=== PATIENT | female | born 1960 | race Caucasian/White ===

== ENCOUNTER 2018-02-14 13:34 | Emergency (ER) | payer MEDICAID ==
[~2018-02-14] VITALS: Ht 165.1 cm; Wt 81.6 kg
[~2018-02-14 13:34] MED LIST: ACAM333T8; BUPR300T51; DICL75TA2; LEVO75TA6; TRAZ100T92
[2018-02-14 14:29] VITALS: BP 118/70
== END 2018-02-14 14:29 | disposition home or self-care (01) ==
LOC: EDUNIT# 13:34 → ER 13:36
DX: S71.112D Laceration without foreign body, left thigh, subsequent encounter (principal); X58.XXXD Exposure to other specified factors, subsequent encounter

== ENCOUNTER → 2019-07-14 | Outpatient (CLI) | payer MEDICAID ==
[~2019-07-14] MED LIST changes: +TRAZ-190; -TRAZ100T92
--- NOTE | 2019-07-14 11:35 | Diagnostic Imaging Report ---
INDICATION: Palpable lump, anterior left thigh. TECHNIQUE: Multiple real time chang scale sonographic images were obtained of the soft tissues of left thigh. CORRELATION STUDY: None FINDINGS: Ultrasound imaging of the soft tissues of the anterior left thigh have an unremarkable appearance. Julian distortion or definitive mass lesion is not demonstrated. IMPRESSION: 1.No definitive mass identified at ultrasound imaging soft tissues left thigh. If further imaging evaluation is desired, MRI preferably with contrast would be recommended. Dictated by: Dictated on workstation # [id number]
== END ==
LOC: RAD 10:36
PROVIDERS: ATTEND Internal Medicine
DX: M79.652 Pain in left thigh (principal); R22.42 Localized swelling, mass and lump, left lower limb
CPT/HCPCS: 76881

== ENCOUNTER → 2019-08-04 | Outpatient (CLI) | payer MEDICAID ==
[~2019-08-04] MED LIST changes: +GADOBUTROL 10 MMOL/10 ML (GADAVIST) VIAL IV ONE
[2019-08-04 09:02] LABS: BUN/CREATININE RATIO 17; CREATININE SERUM 0.83 MG/DL (0.60-1.30); GFR ESTIMATED > 60
--- NOTE | 2019-08-04 12:33 | Diagnostic Imaging Report ---
Exam: MRI left thigh without and with intravenous contrast. DATE: August 04, 2019. INDICATION: 58-year-old female, left anterior thigh pain and lump. COMPARISON: Ultrasound July 14, 2019. TECHNIQUE: Multiple pre and postcontrast MRI sequences at the level of the left thigh were obtained. FINDINGS: A marker was placed at the area of palpable concern which is anteriorly located at the level of the proximal to mid femoral diaphysis centered approximately 18.8 cm distal to the superior aspect of the left femoral head. There is no underlying soft tissue mass or fluid collection. There is nonspecific mild anterior subcutaneous edema near this region on axial T2 fat saturation sequence image 25 and adjacent sequential images. Additional soft tissue assessment is unremarkable. There is unremarkable intramuscular signal. There is no identified muscle hernia. The left common hamstring tendons, left iliopsoas tendon, left gluteus minimus and medius tendons, and additional visualized tendons are intact. There are synovial herniation pits at the left femoral head neck junction. There is no bone lesion. There is no acute fracture. There is no hip joint effusion. IMPRESSION: 1. No soft tissue mass or fluid collection at the area of focal patient concern of the anterior aspect of the left thigh at the level of the proximal to mid femoral diaphysis. 2. Mild nonspecific anterior subcutaneous edema near the area of focal patient concern. 3. Unremarkable intramuscular signal. 4. Intact tendons. 5. No identified bone lesion or notable bone marrow signal abnormality. Dictated by: Dictated on workstation # [id number]
== END ==
LOC: RAD 08:38
PROVIDERS: ATTEND Internal Medicine
DX: M79.652 Pain in left thigh (principal); R22.42 Localized swelling, mass and lump, left lower limb
CPT/HCPCS: 36415; 73720; 82565; 84520

== ENCOUNTER → 2020-06-28 | Outpatient (CLI) | payer MEDICARE, MEDICAID ==
[~2020-06-28] MED LIST changes: -BUPR300T51; +BUPR300T98; -GADOBUTROL 10 MMOL/10 ML (GADAVIST) VIAL IV ONE; -TRAZ-190; +TRAZ-227
--- NOTE | 2020-06-28 13:03 | Diagnostic Imaging Report ---
INDICATION: Routine screening. No prior mammograms are available for comparison. 2-D and 3-D bilateral screening mammography was performed with CAD. Scattered fibroglandular densities are identified bilaterally. No mass or malignant appearing microcalcifications are seen. Axillae are unremarkable. IMPRESSION: BI-RADS Category 1 No mammographic features suspicious for malignancy are identified. ACR BI-RADS Category 1: Negative. Result letter will be mailed to the patient. Note: At least 10% of breast cancer is not imaged by mammography. Dictated by: Dictated on workstation # [id number]
== END ==
LOC: RAD 08:50
PROVIDERS: ATTEND Internal Medicine
DX: Z12.31 Encounter for screening mammogram for malignant neoplasm of breast (principal)
CPT/HCPCS: 77063; 77067

== ENCOUNTER → 2020-09-19 | Outpatient (CLI) | payer MEDICARE, MEDICAID ==
--- NOTE | 2020-09-19 09:17 | Diagnostic Imaging Report ---
PROCEDURE: MRI lumbar spine. INDICATION: Chronic low back pain. TECHNIQUE: Multiplanar and multisequence magnetic resonance imagine was performed of the lumbar spine without contrast. CORRELATION STUDY: None. FINDINGS: There is normal alignment and curvature of the lumbar spine. The lumbar vertebral body heights are maintained and without geographic lesion. The conus appears unremarkable. L1-L2: Unremarkable. L2-L3: Disc space height maintained and signal intensity. Mild ligamentum hypertrophy without significant canal or foraminal narrowing. L3-L4: Preservation of disc space height and signal intensity. Mild ligamentum hypertrophy. No significant canal or foraminal narrowing. L4-L5: Mild loss of disc space height. Ligament and facet hypertrophy, slightly greater on the left, result in [id number] trefoil type spinal canal narrowing. Disc and osteophyte also result in bilateral foraminal narrowing with slight abutment of the exiting nerve root, particularly on the left. L5-S1: Loss of disc space height and signal intensity. Disc and osteophyte formation does result in bilateral foraminal narrowing, slightly greater on the left. There does appear to be very slight contour of the exiting nerve root. Mild spinal canal narrowing. The visualized portions of the abdominal aorta and kidneys are negative. No pathologically enlarged central retroperitoneal lymph nodes. IMPRESSION: Multilevel degenerative changes are present with various degrees of mild to moderate spinal canal and foraminal narrowing. Findings are most severe at the L4-L5 and L5-S1 levels. Dictated by: Dictated on workstation # [id number]
== END ==
LOC: RAD 07:43
PROVIDERS: ATTEND Internal Medicine
DX: M51.36 Other intervertebral disc degeneration, lumbar region (principal); M51.37 Other intervertebral disc degeneration, lumbosacral region; M48.061 Spinal stenosis, lumbar region without neurogenic claudication; M48.07 Spinal stenosis, lumbosacral region; M43.16 Spondylolisthesis, lumbar region
CPT/HCPCS: 72148

== ENCOUNTER 2020-09-30 16:07 | Emergency (ER) | payer MEDICARE, MEDICAID ==
[~2020-09-30] VITALS: Ht 157 cm; Wt 91.0 kg
--- NOTE | 2020-09-30 16:22 | ED Headache ---
General Chief Complaint: Head/Cervical Problems Stated Complaint: HEADACHE Source: patient Exam Limitations: no limitations History of Present Illness Date Seen by Provider: Sep 30, 2020 Time Seen by Provider: 16:20 Initial Comments to ER with reports of a bitemporal headache that she awakened with 2 days ago. She gets headaches routinely but never this bad. No fevers or chills. No confusion or nasal congestion or cough or fatigue. She reports light sensitivity but no blurred vision. She has had nausea but no vomiting. No neck pain or stiffness no head injury. She does report that she dyed her hair just prior to this the night before and got a chemical burn on her scalp. Timing/Duration: 1 week Severity/Quality: moderate Associated Symptoms: nausea/vomiting Allergies and Home Medications Allergies Coded Allergies: NKANo Known Allergies (Verified Allergy, Unknown, 08/15/08) Patient Home Medication List Home Medication List Reviewed: Yes Review of Systems Review of Systems Constitutional: see HPI Eyes: See HPI, Photophobia Ears, Nose, Mouth, Throat: no symptoms reported Respiratory: no symptoms reported Genitourinary: no symptoms reported Musculoskeletal: no symptoms reported Skin: no symptoms reported Psychiatric/Neurological: Headache Past Saufimi-Ruxyit-Jebluu Hx Patient Social History Alcohol Beverage of Choice: Beer, Rum Recent Foreign Travel: No Contact w/Someone Who Travel: No Recent Hopitalizations: No Past Medical History Surgeries: No Respiratory: No Cardiac: No Neurological: No Genitourinary: No Gastrointestinal: No Musculoskeletal: No Endocrine: No HEENT: No Cancer: No Psychosocial: Yes Anxiety, Depression Integumentary: No Physical Exam Vital Signs Vital Signs - First Documented 09/30/20 16:10 Temp 35.5 Pulse 84 Resp 18 B/P (MAP) 145/91 (109) Pulse Ox 95 O2 Delivery Room Air Capillary Refill : Height, Weight, BMI Height: 5'5.00" Weight: 180lbs. oz. 81.954500wk; 28.12 BMI Method:Estimated General Appearance: WD/WN, no apparent distress, other (alert and oriented very talkative no distress bit of erythema to the left side of the scalp in the parietal region without vesicles or other alarming characteristics.) HEENT: PERRL/EOMI, normal ENT inspection, TMs normal, pharynx normal Neck: non-tender, full range of motion; No tender lateral, No tender midline Respiratory: no respiratory distress, no accessory muscle use Extremities: normal range of motion, non-tender Psychiatric: alert, oriented x 3 Crainal Nerves: normal hearing, normal speech, PERRL Skin: normal color, warm/dry Procedures/Interventions Suture Size: 4-0 Progress/Results/Core Measures Results/Orders Lab Results Laboratory Tests Test 09/30/20 16:40 09/30/20 17:32 Range/Units White Blood Count 8.9 4.3-11.0 10^3/uL Red Blood Count 4.62 3.80-5.11 10^6/uL Hemoglobin 13.9 11.5-16.0 g/dL Hematocrit 44 35-52 % Mean Corpuscular Volume 94 80-99 fL Mean Corpuscular Hemoglobin 30 25-34 pg Mean Corpuscular Hemoglobin Concent 32 32-36 g/dL Red Cell Distribution Width 13.2 10.0-14.5 % Platelet Count 309 130-400 10^3/uL Mean Platelet Volume 10.7 9.0-12.2 fL Immature Granulocyte % (Auto) 0 % Neutrophils (%) (Auto) 48 42-75 % Lymphocytes (%) (Auto) 44 12-44 % Monocytes (%) (Auto) 5 0-12 % Eosinophils (%) (Auto) 2 0-10 % Basophils (%) (Auto) 1 0-10 % Neutrophils # (Auto) 4.2 1.8-7.8 10^3/uL Lymphocytes # (Auto) 3.9 1.0-4.0 10^3/uL Monocytes # (Auto) 0.5 0.0-1.0 10^3/uL Eosinophils # (Auto) 0.2 0.0-0.3 10^3/uL Basophils # (Auto) 0.0 0.0-0.1 10^3/uL Immature Granulocyte # (Auto) 0.0 0.0-0.1 10^3/uL Erythrocyte Sedimentation Rate 17 0-30 MM/HR Sodium Level 144 135-145 MMOL/L Potassium Level 3.7 3.6-5.0 MMOL/L Chloride Level 105 98-107 MMOL/L Carbon Dioxide Level 26 21-32 MMOL/L Anion Gap 13 5-14 MMOL/L Blood Urea Nitrogen 13 7-18 MG/DL Creatinine 1.07 0.60-1.30 MG/DL Estimat Glomerular Filtration Rate 52 BUN/Creatinine Ratio 12 Glucose Level 115 H 70-105 MG/DL Calcium Level 8.7 8.5-10.1 MG/DL Coronavirus 2019 ([facility]) Negative Negative My Orders Orders - ARACELIS CLEMENTS APRN Cbc With Automated Diff (09/30/20 16:34) Erythrocyte Sedimentation Rate (09/30/20 16:34) Ed Iv/Invasive Line Start (09/30/20 16:34) Ct Head Wo (09/30/20 16:34) Basic Metabolic Panel (09/30/20 16:34) Ketorolac Injection (Toradol Injection) (09/30/20 16:45) Prochlorperazine Injection (Compazine In (09/30/20 16:45) Diphenhydramine Injection (Benadryl Inje (09/30/20 16:45) Ns Iv 1000 Ml (Sodium Chloride 0.9%) (09/30/20 16:45) Fentanyl Injection (Sublimaze Injection (09/30/20 17:45) Covid 19 Inhouse Test (09/30/20 17:36) Medications Given in ED Current Medications Medications Dose Ordered Sig/Jerrica Route Start Time Stop Time Status Last Admin Dose Admin Diphenhydramine HCl 25 mg ONCE ONCE IVP 09/30/20 16:45 09/30/20 16:46 DC 09/30/20 16:58 25 MG Fentanyl Citrate 75 mcg ONCE ONCE IVP 09/30/20 17:45 09/30/20 17:46 DC 09/30/20 17:46 75 MCG Ketorolac Tromethamine 15 mg ONCE ONCE IVP 09/30/20 16:45 09/30/20 16:46 DC 09/30/20 17:02 15 MG Prochlorperazine Edisylate 5 mg ONCE ONCE IV 09/30/20 16:45 09/30/20 16:46 DC 09/30/20 16:53 5 MG Vital Signs/I&O 09/30/20 16:10 Temp 35.5 Pulse 84 Resp 18 B/P (MAP) 145/91 (109) Pulse Ox 95 O2 Delivery Room Air Departure Communication (Admissions) 3560-started out with a bilateral greater occipital nerve block with 2 mL of 1% lidocaine with epinephrine on each side. No improvement. We then started an IV checked labs did a CT and gave Toradol Compazine and Benadryl plus IV fluids. At this time I reassessed her and she has no improvement. I'll swab her for covid and give 75 g of fentanyl IV. Impression Primary Impression: Headache Disposition: HOME, SELF-CARE Condition: Improved Departure-Patient Inst. Decision time for Depature: 17:29 Referrals: JAN RAMÍREZ MD (PCP/Family) Primary Care Physician Patient Instructions: Headache, Adult (DC) Add. Discharge Instructions: 1. Return to ER for any concerns 2. Follow-up with your doctor next week 3. All discharge instructions reviewed with patient and/or family. Voiced understanding. ARACELIS CLEMENTS ENDOSCOPY RN Sep 30, 2020 16:22
[2020-09-30] MEDS ORDERED: PROCHLORPERAZINE 10 MG/2ML INJ (COMPAZINE) IV ONE (16:45)
[2020-09-30] MEDS ORDERED: NS IV 1000 ML 1,000 ML IV SCH (16:45)
[2020-09-30] MEDS ORDERED: diphenhydrAMINE 50 MG/ML INJ (BENADRYL) IVP ONE (16:45)
[2020-09-30] MEDS ORDERED: KETOROLAC 30 MG/ML VIAL IVP ONE (16:45)
[2020-09-30 16:48] LABS: BASOPHILS % (AUTO) 1 % (0-10); EOSINOPHILS # (AUTO) 0.2 10^3/uL (0.0-0.3); EOSINOPHILS % (AUTO) 2 % (0-10); HEMATOCRIT 44 % (35-52); HEMOGLOBIN 13.9 g/dL (11.5-16.0); LYMPHOCYTES # (AUTO) 3.9 10^3/uL (1.0-4.0); LYMPHOCYTES % (AUTO) 44 % (12-44); MEAN CORPUSCULAR HEMOGLOBIN 30 pg (25-34); MEAN CORPUSCULAR HGB CONC 32 g/dL (32-36); MEAN CORPUSCULAR VOLUME 94 fL (80-99); MEAN PLATELET VOLUME 10.7 fL (9.0-12.2); MONOCYTES # (AUTO) 0.5 10^3/uL (0.0-1.0); MONOCYTES % (AUTO) 5 % (0-12); NEUTROPHILS # (AUTO) 4.2 10^3/uL (1.8-7.8); NEUTROPHILS % (AUTO) 48 % (42-75); PLATELET COUNT 309 10^3/uL (130-400); WHITE BLOOD COUNT 8.9 10^3/uL (4.3-11.0)
[2020-09-30 17:02] LABS: POTASSIUM 3.7 MMOL/L (3.6-5.0)
[2020-09-30 17:04] LABS: CALCIUM 8.7 MG/DL (8.5-10.1)
[2020-09-30 17:08] LABS: CREATININE SERUM 1.07 MG/DL (0.60-1.30)
[2020-09-30 17:16] LABS: ERYTHROCYTE SEDIMENTATION RATE 17 MM/HR (0-30)
--- NOTE | 2020-09-30 17:25 | Diagnostic Imaging Report ---
PROCEDURE: CT head without contrast. TECHNIQUE: Multiple contiguous axial images were obtained through the brain without the use of intravenous contrast. Auto Exposure Controls were utilized during the CT exam to meet ALARA standards for radiation dose reduction. INDICATION: Headache. COMPARISON: No prior examinations are available for comparison. FINDINGS: The ventricles and sulci are within normal limits. There is no hydrocephalus or cerebral edema. There is no midline shift or mass effect. There is no intracranial mass, hemorrhage, or extra-axial fluid collection. The visualized paranasal sinuses and mastoid air cells are clear. There are no regional areas of decreased attenuation appreciated to suggest an acute CVA. IMPRESSION: No acute intracranial abnormality. Dictated by: Dictated on workstation # [id number]
[2020-09-30] MEDS ORDERED: fentaNYL INJECTION 100 MCG/2 ML AMP IVP ONE (17:45)
[2020-09-30 18:17] VITALS: BP 138/85
== END 2020-09-30 18:17 | disposition home or self-care (01) ==
LOC: EDUNIT# 16:07 → ER 16:09
DX: R51.9 Headache, unspecified (principal); Z20.828 Contact with and (suspected) exposure to other viral communicable diseases
CPT/HCPCS: 70450; 80048; 85025; 85652; 99284; U0002; 36415; 87635; 96374; 96375; 96376

== ENCOUNTER 2021-03-29 17:52 | Emergency (ER) | payer MEDICARE, MEDICAID ==
[~2021-03-29] VITALS: Ht 157.5 cm; Wt 73.9 kg
--- NOTE | 2021-03-29 18:04 | ED General ---
General Chief Complaint: Respiratory Problems Stated Complaint: SOB Source of Information: Patient (CHANGES STORY MULTIPLE TIMES) History of Present Illness Date Seen by Provider: Mar 29, 2021 Time Seen by Provider: 17:54 Initial Comments PT ARRIVES VIA EMS FROM HOME PT STATES SHE WALKS EVERY DAY, AND TODAY SHE HAS WALKED A TOTAL OF 5 MILES--IN INCREMENTS THROUGHOUT THE DAY TEMP 95 DEGREES/HEAT INDEX > 100 STATES AFTER WALKING THE LAST 40 MINUTES, SHE FEELS LIKE SHE "CAN'T CATCH MY BREATH AND STILL FEEL OVERHEATED" --STATES SHE ALWAYS FEELS LIKE SHE CAN'T GET IN A FULL DEEP BREATH--ONGOING FOR A VERY LONG TIME STILL SWEATING NO CHEST PAIN NO PALPITATIONS NO NAUSEA/VOMITING/DIARRHEA OR ABDOMINAL PAIN NO DIZZINESS, BUT THEN LATER STATES SHE WAS "HAVING TO HOLD ON TO THE [place]" AFTER SHE CAME IN FROM HER WALK NO HEADACHE NO SYNCOPE NO PARESTHESIAS OR MOTOR DEFICITS STATES SHE IS TRYING TO LOSE WEIGHT, HAS NOT EATEN ANYTHING SINCE YESTERDAY--INTENTIONALLY HAS NOT EATEN, BECAUSE SHE IS TRYING TO LOSE WEIGHT--, AND DRANK 40 OZ OF WATER X 3 TODAY LAST VOID WAS AROUND NOON TODAY. HOWEVER, STATES SHE HAS A FULL BLADDER NOW AND NEEDS TO URINATE ON ARRIVAL ALSO WANTING SOMETHING TO EAT ON ARRIVAL "BECAUSE I HAVEN'T EATEN SINCE YESTERDAY" PT DRINKS "OCCASIONALLY" AND HAD RUM AND COKE THIS MORNING AT 10 AM. THEN STATES SHE ALSO WENT TO WORK TODAY AT 10 AM AT THE "[employer]" AND SINCE SHE IS HERE, SHE WOULD LIKE HER LEFT ANKLE CHECKED ALSO--THIS IS HER MAIN FOCUS ON ARRIVAL STATES SHE FELL A WEEK AGO AND HER LEFT ANKLE IS SORE, BUT DID NOT SEEK CARE AT ANY TIME, AND HAS CONTINUED TO WALK SEVERAL MILES EVERY DAY SINCE HAS SCABBED ABRASIONS TO BOTH KNEES--NO COMPLAINT OF KNEE PAIN PT IS NOT UP TO DATE ON TETANUS VACCINE CHANGES HER STORY A MULTITUDE OF TIMES REGARDING WORK, WHEN SHE FELL, WHEN SHE LAST HAD ANY ALCOHOL AND HOW MUCH--STATING ANY/ALL OF THESE OCCURRED ANYWHERE FROM LAST WEEK UNTIL THIS MORNING PCP: ISAIAH, DR. RAMÍREZ Allergies and Home Medications Allergies Coded Allergies: NKANo Known Allergies (Verified Allergy, Unknown, 08/15/08) Patient Home Medication List Home Medication List Reviewed: Yes Review of Systems Review of Systems Constitutional: see HPI EENTM: no symptoms reported Respiratory: see HPI; No cough; dyspnea on exertion, short of breath Cardiovascular: No chest pain, No edema, No palpitations, No syncope Gastrointestinal: no symptoms reported; No abdominal pain, No diarrhea, No nausea, No vomiting Genitourinary: see HPI, decreased output Musculoskeletal: other (FELL LAST WEEK, ABRASIONS TO BOTH KNEES, LEFT ANKLE PAIN--HAS NOT SOUGHT CARE) Skin: no symptoms reported Psychiatric/Neurological: No Symptoms Reported; Denies Headache, Denies Numbness, Denies Paresthesia, Denies Seizure, Denies Tingling, Denies Weakness Hematologic/Lymphatic: No Symptoms Reported Immunological/Allergic: no symptoms reported Past Lhawcrj-Rnpsas-Ypcwli Hx Past Med/Social Hx: Reviewed and Corrections made Patient Social History Alcohol Use: Occasionally Uses Alcohol Beverage of Choice: Beer, Rum Drug of Choice: HX OF COCAINE USE YEARS AGO-SNORTED/SMOKED IT Smoking Status: Former Smoker (1 PPD, QUIT 2019) Type Used: Cigarettes Former Smoker, Quit: Sep 13, 2020 2nd Hand Smoke Exposure: No Recent Hopitalizations: No Substance type: Other (COCAINE IN PAST--SNORTED/SMOKED IT) Immunizations Up To Date Date of Influenza Vaccine: Jul 14, 2019 Past Medical History Surgeries: Yes (RIGHT CARPAL TUNNEL) Orthopedic, Tubal Ligation Respiratory: No Cardiac: Yes High Cholesterol Neurological: No : No [employer] History: Menopausal Genitourinary: No Gastrointestinal: No Musculoskeletal: Yes (OPIATE DEPENDENT) Degenerate Disk Disease, Chronic Back Pain Endocrine: No HEENT: No Cancer: No Psychosocial: Yes Sleep Difficulties, Anxiety, Depression Integumentary: No Blood Disorders: No Physical Exam Vital Signs Vital Signs - First Documented 03/29/21 03/29/21 17:56 19:00 Temp 36.5 Pulse 80 Resp 18 B/P (MAP) 120/78 (92) Pulse Ox 99 O2 Delivery Room Air Capillary Refill : Height, Weight, BMI Height: 5'5.00" Weight: 180lbs. oz. 81.528911te; 36.00 BMI Method:Estimated General Appearance: No Apparent Distress, WD/WN, Obese, Other (SMILING, LAUGHING, TALKS NON-STOP AT LENGTH, NO DYSPNEA NOTED. DOES NOT APPEAR TO BE IN ANY DISCOMFORT OR DISTRESS. PT WITH EAR BUDS IN PLACE AnD CELL PHONE STRAPPED TO LEFT WRIST, AND CONTINUES TO LISTEN AND WATCH VIDEOS/ETC ON HER PHONE THROUGHTOUT HISTORY AND EXAM. SMILING AND LAUGHING AT INTERVALS THROUHGOUT EXAM AND ER STAY. ) HEENT: PERRL/EOMI, Other (POOR DENTITION) Neck: Full Range of Motion, Normal Inspection, Non Tender, Supple; No Carotid Bruit, No JVD Respiratory: Chest Non Tender, Normal Breath Sounds, No Accessory Muscle Use, No Respiratory Distress Cardiovascular: Regular Rate, Rhythm, No Edema, No JVD, No Murmur, Normal Peripheral Pulses Gastrointestinal: Normal Bowel Sounds, No Organomegaly, Non Tender, Soft Back: No CVA Tenderness Extremity: Normal Capillary Refill, Normal Range of Motion, No Calf Tenderness, No Pedal Edema, Other (MILD TENDERNESS TO LATERAL MALLEOLUS OF LEFT ANKLE. VERY FAINT YELLOW BRUISING, AND VERY SLIGHT SWELLING TO LATERAL MALLEOLUS) Neurologic/Psychiatric: Alert, Oriented x3, No Motor/Sensory Deficits, Normal Mood/Affect, port drier II-XII Norm as Tested; No Abnormal Cerebellar Tests Skin: Normal Color, Warm/Dry; No Cool, No Cyanosis, No Diaphoresis, No Erythema; Tattoos/Piercings (EXTENSIVE TATTOOS), Other (SCABBED ABRASIONS TO BOTH KNEES.. COLOR IS NORMAL, SKIN IS COOL AND DRY. ) Procedures/Interventions Suture Size: 4-0 Progress/Results/Core Measures Suspected Sepsis SIRS Temperature: Pulse: Respiratory Rate: Laboratory Tests 03/29/21 17:57: White Blood Count 7.6 Blood Pressure / Mean: Laboratory Tests 03/29/21 17:57: Creatinine 0.84, Platelet Count 280, Total Bilirubin 0.3 Results/Orders Lab Results Laboratory Tests Test 03/29/21 17:57 03/29/21 18:13 Range/Units White Blood Count 7.6 4.3-11.0 10^3/uL Red Blood Count 4.38 3.80-5.11 10^6/uL Hemoglobin 13.3 11.5-16.0 g/dL Hematocrit 40 35-52 % Mean Corpuscular Volume 91 80-99 fL Mean Corpuscular Hemoglobin 30 25-34 pg Mean Corpuscular Hemoglobin Concent 34 32-36 g/dL Red Cell Distribution Width 13.2 10.0-14.5 % Platelet Count 280 130-400 10^3/uL Mean Platelet Volume 11.3 9.0-12.2 fL Immature Granulocyte % (Auto) 0 % Neutrophils (%) (Auto) 41 L 42-75 % Lymphocytes (%) (Auto) 48 H 12-44 % Monocytes (%) (Auto) 8 0-12 % Eosinophils (%) (Auto) 2 0-10 % Basophils (%) (Auto) 1 0-10 % Neutrophils # (Auto) 3.2 1.8-7.8 10^3/uL Lymphocytes # (Auto) 3.7 1.0-4.0 10^3/uL Monocytes # (Auto) 0.6 0.0-1.0 10^3/uL Eosinophils # (Auto) 0.2 0.0-0.3 10^3/uL Basophils # (Auto) 0.0 0.0-0.1 10^3/uL Immature Granulocyte # (Auto) 0.0 0.0-0.1 10^3/uL Sodium Level 141 135-145 MMOL/L Potassium Level 3.5 L 3.6-5.0 MMOL/L Chloride Level 105 98-107 MMOL/L Carbon Dioxide Level 19 L 21-32 MMOL/L Anion Gap 17 H 5-14 MMOL/L Blood Urea Nitrogen 7 7-18 MG/DL Creatinine 0.84 0.60-1.30 MG/DL Estimat Glomerular Filtration Rate > 60 BUN/Creatinine Ratio 8 Glucose Level 80 70-105 MG/DL Calcium Level 9.1 8.5-10.1 MG/DL Corrected Calcium 9.1 8.5-10.1 MG/DL Magnesium Level 2.1 1.6-2.4 MG/DL Total Bilirubin 0.3 0.1-1.0 MG/DL Aspartate Amino Transf (AST/SGOT) 20 5-34 U/L Alanine Aminotransferase (ALT/SGPT) 17 0-55 U/L Alkaline Phosphatase 83 40-136 U/L Total Creatine Kinase 96 29-168 U/L Creatine Kinase MB 1.2 <6.6 NG/ML Myoglobin 46.5 10.0-92.0 NG/ML Troponin I < 0.028 <0.028 NG/ML B-Type Natriuretic Peptide < 10.0 <100.0 PG/ML Total Protein 7.1 6.4-8.2 GM/DL Albumin 4.0 3.2-4.5 GM/DL TSH [place] Testing 1.09 0.35-4.94 UIU/ML Serum Alcohol 115 H <10 MG/DL Urine Color YELLOW Urine Clarity CLEAR Urine pH 5.5 5-9 Urine Specific [place] <=1.005 1.016-1.022 Urine Protein NEGATIVE NEGATIVE Urine Glucose (UA) NEGATIVE NEGATIVE Urine Ketones NEGATIVE NEGATIVE Urine Nitrite NEGATIVE NEGATIVE Urine Bilirubin NEGATIVE NEGATIVE Urine Urobilinogen 0.2 < = 1.0 MG/DL Urine Leukocyte Esterase NEGATIVE NEGATIVE Urine RBC (Auto) NEGATIVE NEGATIVE Urine RBC NONE /HPF Urine WBC NONE /HPF Urine Squamous Epithelial Cells RARE /HPF Urine Crystals NONE /LPF Urine Bacteria NEGATIVE /HPF Urine Casts NONE /LPF Urine Mucus NEGATIVE /LPF Urine Culture Indicated NO Urine Opiates Screen NEGATIVE NEGATIVE Urine Oxycodone Screen NEGATIVE NEGATIVE Urine Methadone Screen NEGATIVE NEGATIVE Urine Propoxyphene Screen NEGATIVE NEGATIVE Urine Barbiturates Screen NEGATIVE NEGATIVE Ur Tricyclic Antidepressants Screen NEGATIVE NEGATIVE Urine Phencyclidine Screen NEGATIVE NEGATIVE Urine Amphetamines Screen NEGATIVE NEGATIVE Urine Methamphetamines Screen NEGATIVE NEGATIVE Urine Benzodiazepines Screen NEGATIVE NEGATIVE Urine Cocaine Screen NEGATIVE NEGATIVE Urine Cannabinoids Screen NEGATIVE NEGATIVE My Orders Orders - MELINDA DSOUZA DO Ed Iv/Invasive Line Start (03/29/21 18:04) Ekg Tracing (03/29/21 18:04) Monitor-Rhythm Ecg Trace Only (03/29/21 18:04) Alcohol (03/29/21 18:04) BNP (03/29/21 18:04) Cbc With Automated Diff (03/29/21 18:04) Comprehensive Metabolic Panel (03/29/21 18:04) Creatine Kinase (03/29/21 18:04) Creatine Kinase Mb (03/29/21 18:04) Drug Screen Stat (Urine) (03/29/21 18:04) Magnesium (03/29/21 18:04) Thyroid Analyzer (03/29/21 18:04) Ua Culture If Indicated (03/29/21 18:04) Myoglobin Serum (03/29/21 18:04) Troponin I (03/29/21 18:04) Chest 1 View, Ap/Pa Only (03/29/21 18:04) Ed Iv/Invasive Line Start (03/29/21 18:04) Lactated Ringers (Lr 1000 Ml Iv Solution (03/29/21 18:15) Ankle, Left, 3 Views (03/29/21 18:16) Dipht,Pertuss(Acell),Tet Adult (Boostrix (03/29/21 18:30) Medications Given in ED Vital Signs/I&O 03/29/21 03/29/21 17:56 19:00 Temp 36.5 36.6 Pulse 80 87 Resp 18 18 B/P (MAP) 120/78 (92) 126/81 (92) Pulse Ox 99 O2 Delivery Room Air Room Air 03/30/21 00:00 Intake Total 1000 ml Balance 1000 ml Capillary Refill : Progress Note : Progress Note NO SYMPTOMS OR COMPLAINTS DURING ER STAY VERY TALKATIVE AND LAUGHING THROUGHOUT ER STAY PT WALKS OUT OF ER ON HER OWN WITHOUT DIFFICULTY SPEECH CLEAR, GAIT STEADY ECG Initial ECG Impression Date: Mar 29, 2021 Initial ECG Impression Time: 18:03 Initial ECG Rate: 77 Initial ECG Rhythm: Normal Sinus Diagnostic Imaging Comments XRAYS PER RADIOLOGIST REPORTS AT 1850 CXR--NO ACUTE PROCESS LEFT ANKLE XRAYS--NO ACUTE PROCESS Departure Impression Primary Impression: Alcohol intoxication Additional Impression: Left ankle sprain Disposition: 01 HOME, SELF-CARE Condition: Stable Departure-Patient Inst. Decision time for Depature: 18:50 Referrals: JAN RAMÍREZ MD (PCP/Family) Primary Care Physician Patient Instructions: Alcohol Abuse and Alcoholism (DC), Effects of Alcohol on Your Health Add. Discharge Instructions: HOME, REST EAT AT LEAST 3 SMALL MEALS A DAY DRINK EQUAL AMOUNTS OF WATER AND GATORADE WHILE YOU ARE IN THE HEAT--DRINK ENOUGH SO YOU ARE URINATING EVERY 2-3 HOURS NO ALCOHOL FOLLOW UP WITH YOUR DR NEEDED All discharge instructions reviewed with patient and/or family. Voiced understanding. MELINDA DSOUZA DO Mar 29, 2021 18:04
[2021-03-29 18:13] LABS: BASOPHILS % (AUTO) 1 % (0-10); EOSINOPHILS # (AUTO) 0.2 10^3/uL (0.0-0.3); EOSINOPHILS % (AUTO) 2 % (0-10); HEMATOCRIT 40 % (35-52); HEMOGLOBIN 13.3 g/dL (11.5-16.0); LYMPHOCYTES # (AUTO) 3.7 10^3/uL (1.0-4.0); LYMPHOCYTES % (AUTO) 48 % (12-44); MEAN CORPUSCULAR HEMOGLOBIN 30 pg (25-34); MEAN CORPUSCULAR HGB CONC 34 g/dL (32-36); MEAN CORPUSCULAR VOLUME 91 fL (80-99); MEAN PLATELET VOLUME 11.3 fL (9.0-12.2); MONOCYTES # (AUTO) 0.6 10^3/uL (0.0-1.0); MONOCYTES % (AUTO) 8 % (0-12); NEUTROPHILS # (AUTO) 3.2 10^3/uL (1.8-7.8); NEUTROPHILS % (AUTO) 41 % (42-75); PLATELET COUNT 280 10^3/uL (130-400); WHITE BLOOD COUNT 7.6 10^3/uL (4.3-11.0)
[2021-03-29] MEDS ORDERED: LACTATED RINGERS 1,000 ML IV ONE (18:15)
[2021-03-29 18:17] LABS: CHLORIDE 105 MMOL/L (98-107); POTASSIUM 3.5 MMOL/L (3.6-5.0); SODIUM 141 MMOL/L (135-145)
[2021-03-29 18:18] LABS: CALCIUM 9.1 MG/DL (8.5-10.1)
[2021-03-29 18:19] LABS: GLUCOSE 80 MG/DL (70-105); TOTAL PROTEIN 7.1 GM/DL (6.4-8.2)
[2021-03-29 18:20] LABS: CARBON DIOXIDE 19 MMOL/L (21-32)
[2021-03-29 18:21] LABS: BILIRUBIN,TOTAL 0.3 MG/DL (0.1-1.0)
[2021-03-29 18:21] LABS: BILIRUBIN,URINE NEGATIVE (NEGATIVE); CLARITY,URINE CLEAR; COLOR,URINE YELLOW; GLUCOSE, URINE (UA) NEGATIVE (NEGATIVE); KETONES,URINE NEGATIVE (NEGATIVE); LEUKOCYTE ESTERASE ,URINE NEGATIVE (NEGATIVE); NITRITE,URINE NEGATIVE (NEGATIVE); PH,URINE 5.5 (5-9); PROTEIN,URINE NEGATIVE (NEGATIVE)
[2021-03-29 18:23] LABS: ALKALINE PHOSPHATASE 83 U/L (40-136); CREATININE SERUM 0.84 MG/DL (0.60-1.30); GFR ESTIMATED > 60
[2021-03-29 18:24] LABS: BUN/CREATININE RATIO 8
[2021-03-29 18:26] LABS: ALANINE AMINOTRANSFERASE 17 U/L (0-55); MAGNESIUM 2.1 MG/DL (1.6-2.4)
[2021-03-29 18:26] LABS: BACTERIA,URINE NEGATIVE /HPF; SQUAMOUS EPITHELIAL CELL,UR RARE /HPF
[2021-03-29 18:27] LABS: CREATINE KINASE 96 U/L (29-168)
[2021-03-29] MEDS ORDERED: TETANUS,DIPTH,PERTUSS P/F (BOOSTRIX) 0.5 ML VIAL IM ONE (18:30)
[2021-03-29 18:33] LABS: CREATINE KINASE MB 1.2 NG/ML (<6.6)
[2021-03-29 18:38] LABS: AMPHETAMINE SCREEN, URINE NEGATIVE (NEGATIVE); BARBITURATE SCREEN URINE NEGATIVE (NEGATIVE); BENZODIAZEPINES SCREEN URINE NEGATIVE (NEGATIVE); CANNABINOID SCREEN, URINE NEGATIVE (NEGATIVE); COCAINE SCREEN URINE NEGATIVE (NEGATIVE); METHADONE STAT NEGATIVE (NEGATIVE); METHAMPHETAMINE SCREEN URINE S NEGATIVE (NEGATIVE); OPIATE SCREEN URINE NEGATIVE (NEGATIVE); OXYCODONE STAT NEGATIVE (NEGATIVE); PROPOXYPHENE STAT NEGATIVE (NEGATIVE); TRICYCLIC ANTIDEPRESSANTS SCRE NEGATIVE (NEGATIVE)
[2021-03-29 18:46] LABS: TSH (THYROID ANALYZER) 1.09 UIU/ML (0.35-4.94)
--- NOTE | 2021-03-29 18:48 | Diagnostic Imaging Report ---
INDICATION: Dyspnea. TECHNIQUE: Frontal chest obtained at 06:36 p.m. FINDINGS: Heart and mediastinal silhouette are normal in appearance. The lungs are clear. There is no pneumothorax or pleural fluid. IMPRESSION: Negative chest. Dictated by: Dictated on workstation # [id number]
--- NOTE | 2021-03-29 18:49 | Diagnostic Imaging Report ---
INDICATION: Injury of left ankle. EXAMINATION: AP, oblique and lateral views of the left ankle were obtained. FINDINGS: No fracture or acute bony abnormality is seen. There is mild calcaneal spurring. IMPRESSION: No acute abnormality of left ankle. Dictated by: Dictated on workstation # [id number]
[2021-03-29 19:00] VITALS: BP 126/81
== END 2021-03-29 19:02 | disposition home or self-care (01) ==
LOC: EDUNIT# 17:52 → ER 17:54
DX: S93.402A Sprain of unspecified ligament of left ankle, initial encounter (principal); S80.211A Abrasion, right knee, initial encounter; S80.212A Abrasion, left knee, initial encounter; F10.929 Alcohol use, unspecified with intoxication, unspecified; E66.9 Obesity, unspecified; Y90.5 Blood alcohol level of 100-119 mg/100 ml; Z68.36 Body mass index [BMI] 36.0-36.9, adult; Z87.891 Personal history of nicotine dependence; Z23 Encounter for immunization; W19.XXXA Unspecified fall, initial encounter
CPT/HCPCS: 71045; 73610; 80053; 80306; 81000; 82550; 82553; 83735; 83874; 83880; 84443; 84484; 85025; 93041; G0480; 36415; 80320; 90715; 93005

== ENCOUNTER 2021-05-21 17:50 | Emergency (ER) | payer MEDICARE, MEDICAID ==
[~2021-05-21] VITALS: Ht 154 cm; Wt 72.7 kg
[2021-05-21] MEDS ORDERED: NS IV 500 ML 500 ML IV SCH (18:00)
[2021-05-21] MEDS ORDERED: KETAMINE SYRINGE 50 MG/5 ML SYRINGE IV ONE (18:00)
[2021-05-21] MEDS ORDERED: KETOROLAC 30 MG/ML VIAL IVP ONE (18:00)
--- NOTE | 2021-05-21 18:05 | ED Back Pain ---
General Chief Complaint: Back Problems Stated Complaint: BACK PAIN Source of Information: Patient Exam Limitations: No Limitations History of Present Illness Date Seen by Provider: May 21, 2021 Time Seen by Provider: 18:01 Initial Comments To ER with reports of severe right flank pain that radiates down the right leg. This is been ongoing for quite some time and she is on oxycodone for it. Her last dose of this was this morning at about 7 AM, she hasn't taken anymore because she didn't feel like it helped. She has had 3 rick colada's to drink today. She called EMS to transport her to the emergency room for further evaluation. No fevers or chills. No loss of bowel or bladder control. No history of IV drug use. No loss of sensation of genitals. No history of cancer. She states this pain got worse than usual on 05/19/2021 after her physical therapy appointment. Location: Lumbar Spine, Paraspinous Muscles Timing/Duration: 1-2 Days Severity: Moderate Associated Symptoms: denies symptoms Allergies and Home Medications Allergies Coded Allergies: NKANo Known Allergies (Verified Allergy, Unknown, 08/15/08) Patient Home Medication List Home Medication List Reviewed: Yes Review of Systems Constitutional: see HPI EENTM: see HPI Respiratory: no symptoms reported Cardiovascular: no symptoms reported Genitourinary: no symptoms reported Musculoskeletal: see HPI, back pain Skin: no symptoms reported Psychiatric/Neurological: No Symptoms Reported Past Ljlghbj-Iigkpj-Zsztph Hx Past Medical History Surgeries: Yes (RIGHT CARPAL TUNNEL) Orthopedic, Tubal Ligation Respiratory: No Cardiac: Yes High Cholesterol Neurological: No [employer] History: Menopausal Genitourinary: No Gastrointestinal: No Musculoskeletal: Yes (OPIATE DEPENDENT) Degenerate Disk Disease, Chronic Back Pain Endocrine: No HEENT: No Cancer: No Psychosocial: Yes Sleep Difficulties, Anxiety, Depression Integumentary: No Blood Disorders: No Physical Exam Vital Signs Vital Signs - First Documented 05/21/21 17:53 Temp 36.0 Pulse 78 Resp 18 B/P (MAP) 106/67 (80) Pulse Ox 98 O2 Delivery Room Air Capillary Refill : Height, Weight, BMI Height: 5'5.00" Weight: 180lbs. oz. [id number]; 29.00 BMI Method:Estimated General Appearance: No Apparent Distress, WD/WN Neck: Full Range of Motion, Normal Inspection Respiratory: No Accessory Muscle Use, No Respiratory Distress Extremity: Normal Capillary Refill, Normal Inspection Neurologic/Psychiatric: Alert, Oriented x3 Skin: Normal Color, Warm/Dry Procedures/Interventions Suture Size: 4-0 Progress/Results/Core Measures Results/Orders Lab Results Laboratory Tests Test 05/21/21 18:03 Range/Units White Blood Count 7.4 4.3-11.0 10^3/uL Red Blood Count 4.40 3.80-5.11 10^6/uL Hemoglobin 13.3 11.5-16.0 g/dL Hematocrit 42 35-52 % Mean Corpuscular Volume 94 80-99 fL Mean Corpuscular Hemoglobin 30 25-34 pg Mean Corpuscular Hemoglobin Concent 32 32-36 g/dL Red Cell Distribution Width 13.4 10.0-14.5 % Platelet Count 276 130-400 10^3/uL Mean Platelet Volume 11.7 9.0-12.2 fL Immature Granulocyte % (Auto) 0 % Neutrophils (%) (Auto) 43 42-75 % Lymphocytes (%) (Auto) 51 H 12-44 % Monocytes (%) (Auto) 3 0-12 % Eosinophils (%) (Auto) 2 0-10 % Basophils (%) (Auto) 1 0-10 % Neutrophils # (Auto) 3.1 1.8-7.8 10^3/uL Lymphocytes # (Auto) 3.8 1.0-4.0 10^3/uL Monocytes # (Auto) 0.3 0.0-1.0 10^3/uL Eosinophils # (Auto) 0.1 0.0-0.3 10^3/uL Basophils # (Auto) 0.1 0.0-0.1 10^3/uL Immature Granulocyte # (Auto) 0.0 0.0-0.1 10^3/uL Sodium Level 147 H 135-145 MMOL/L Potassium Level 3.6 3.6-5.0 MMOL/L Chloride Level 110 H 98-107 MMOL/L Carbon Dioxide Level 23 21-32 MMOL/L Anion Gap 14 5-14 MMOL/L Blood Urea Nitrogen 8 7-18 MG/DL Creatinine 0.95 0.60-1.30 MG/DL Estimat Glomerular Filtration Rate 60 BUN/Creatinine Ratio 8 Glucose Level 102 70-105 MG/DL Calcium Level 8.9 8.5-10.1 MG/DL Serum Alcohol 228 H <10 MG/DL My Orders Orders - ARACELIS CLEMENTS [employer] Cbc With Automated Diff (05/21/21 17:57) Alcohol (05/21/21 17:57) Basic Metabolic Panel (05/21/21 17:57) Ed Iv/Invasive Line Start (05/21/21 17:57) Ct Abd/Pelvis Wo(Kidney Stone) (05/21/21 17:57) Ns Iv 500 Ml (Sodium Chloride 0.9%) (05/21/21 18:00) Ketorolac Injection (Toradol Injection) (05/21/21 18:00) Ketamine Syringe (Ketamine Syringe) (05/21/21 18:00) Ua Culture If Indicated (05/21/21 18:00) Medications Given in ED Current Medications Medications Dose Ordered Sig/Jerrica Route Start Time Stop Time Status Last Admin Dose Admin Ketamine HCl 25 mg ONCE ONCE IV 05/21/21 18:00 05/21/21 18:01 DC 05/21/21 18:11 25 MG Ketorolac Tromethamine 15 mg ONCE ONCE IVP 05/21/21 18:00 05/21/21 18:01 DC 05/21/21 18:11 15 MG Vital Signs/I&O 05/21/21 17:53 Temp 36.0 Pulse 78 Resp 18 B/P (MAP) 106/67 (80) Pulse Ox 98 O2 Delivery Room Air Departure Communication (Admissions) [id number] "you are going to admit me, I am not going home. You will give me what ever medication I need, but I am not going home under any circumstance". Impression Primary Impression: Alcohol intoxication Additional Impression: Back pain Disposition: 01 HOME, SELF-CARE Condition: Stable Departure-Patient Inst. Decision time for Depature: 18:28 Referrals: JAN RAMÍREZ MD (PCP/Family) Primary Care Physician Patient Instructions: MANAGING YOUR CHRONIC PAIN Add. Discharge Instructions: All discharge instructions reviewed with patient and/or family. Voiced understanding. Images Torso/Trunk 1 - ARACELIS CLEMENTS APRN May 21, 2021 18:05
[2021-05-21 18:08] LABS: BASOPHILS # (AUTO) 0.1 10^3/uL (0.0-0.1); BASOPHILS % (AUTO) 1 % (0-10); EOSINOPHILS # (AUTO) 0.1 10^3/uL (0.0-0.3); EOSINOPHILS % (AUTO) 2 % (0-10); HEMATOCRIT 42 % (35-52); HEMOGLOBIN 13.3 g/dL (11.5-16.0); LYMPHOCYTES # (AUTO) 3.8 10^3/uL (1.0-4.0); LYMPHOCYTES % (AUTO) 51 % (12-44); MEAN CORPUSCULAR HEMOGLOBIN 30 pg (25-34); MEAN CORPUSCULAR HGB CONC 32 g/dL (32-36); MEAN CORPUSCULAR VOLUME 94 fL (80-99); MEAN PLATELET VOLUME 11.7 fL (9.0-12.2); MONOCYTES # (AUTO) 0.3 10^3/uL (0.0-1.0); MONOCYTES % (AUTO) 3 % (0-12); NEUTROPHILS # (AUTO) 3.1 10^3/uL (1.8-7.8); NEUTROPHILS % (AUTO) 43 % (42-75); PLATELET COUNT 276 10^3/uL (130-400); WHITE BLOOD COUNT 7.4 10^3/uL (4.3-11.0)
[2021-05-21 18:19] LABS: POTASSIUM 3.6 MMOL/L (3.6-5.0)
[2021-05-21 18:20] LABS: CALCIUM 8.9 MG/DL (8.5-10.1)
[2021-05-21 18:25] LABS: CREATININE SERUM 0.95 MG/DL (0.60-1.30)
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
[2021-05-21 19:08] VITALS: BP 122/81
== END 2021-05-21 19:10 | disposition home or self-care (01) ==
LOC: EDUNIT# 17:50 → ER 17:52
DX: F10.129 Alcohol abuse with intoxication, unspecified (principal); G89.29 Other chronic pain; M54.9 Dorsalgia, unspecified; Z79.891 Long term (current) use of opiate analgesic
CPT/HCPCS: 74176; 80048; 85025; G0480; 36415; 80320